=== PATIENT | female | born 1950 | race Caucasian/White ===

== ENCOUNTER → 2016-05-11 | Day surgery (SDC) | payer MEDICARE | END | disposition home or self-care (01) | LOC: SDCH 08:16 | DX: Z12.11 Encounter for screening for malignant neoplasm of colon (principal); K63.5 Polyp of colon; K52.839 Microscopic colitis, unspecified; J44.9 Chronic obstructive pulmonary disease, unspecified; J40 Bronchitis, not specified as acute or chronic; K21.9 Gastro-esophageal reflux disease without esophagitis; M19.90 Unspecified osteoarthritis, unspecified site; M06.9 Rheumatoid arthritis, unspecified; F41.9 Anxiety disorder, unspecified; F32.9 Major depressive disorder, single episode, unspecified; F17.210 Nicotine dependence, cigarettes, uncomplicated; Z88.1 Allergy status to other antibiotic agents; Z90.11 Acquired absence of right breast and nipple; Z98.890 Other specified postprocedural states | CPT/HCPCS: J2704 ==